=== PATIENT | male | born 1950 ===

== ENCOUNTER 2017-02-06 18:22 | Emergency (ER) | payer MEDICARE ==
[2017-02-06 18:48] VITALS: BP 130/95; PULSE 80; RESP 16; TEMP 98.2; O2SAT 99
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
[2017-02-06 20:42] LABS: PARTIAL THROMBOPLASTIN TIME 28.4 SECONDS (23.3-32.5)
[2017-02-06 21:21] LABS: BASO % 0.7 % (0.0-2.0); EOS # 0.1 K/uL (0.0-0.7); EOS % 1.9 % (0.0-4.0); HEMATOCRIT 34.2 % (35.0-51.0); LYMPH # 0.7 K/uL (1.0-4.3); MEAN CELL VOLUME 90.1 fl (80.0-94.0); MEAN CORPUSCULAR HEMOGLOBIN 28.9 pg (27.0-31.0); MEAN CORPUSCULAR HGB CONC 32.1 g/dL (33.0-37.0); MEAN PLATELET VOLUME 9.5 fl (7.2-11.7); MONO # 0.4 K/uL (0.0-0.8); MONO % 13.9 % (0.0-10.0); NEUT # 1.8 K/uL (1.8-7.0); NEUT % 58.5 % (50.0-75.0); NRBC % 0.2 % (0.0-0.0); RED CELL DISTRIBUTION WIDTH 14.3 % (11.5-14.5)
[2017-02-06 21:30] LABS: ALB/GLOB RATIO 0.9 (1.0-2.1); BILIRUBIN,TOTAL 0.4 mg/dl (0.2-1.3); CALCIUM 9.6 mg/dL (8.4-10.2); TOTAL PROTEIN 8.3 G/DL (6.3-8.2)
[2017-02-06 21:34] LABS: POTASSIUM 5.4 MMOL/L (3.6-5.0)
--- NOTE | 2017-02-06 22:03 | ED PDOC ---
Lower Extremity Pain/Injury Time Seen by Provider: 02/06/17 19:22 Chief Complaint (Nursing): Lower Extremity Problem/Injury Chief Complaint (Provider): right lower extremity problem History Per: Patient History/Exam Limitations: no limitations Onset/Duration Of Symptoms: Days (x 2 weeks ) Current Symptoms Are (Timing): Still Present Additional Complaint(s): Jesu Dodd is a 66 year old male, with a a previous medical history of diabetes, hypertension and CAD, who presents to the ED with complaints of an ulceration on the right lower extremity ongoing for 2 weeks. Pt reports weeping at the right lower tibial surface. Pt states to taking gabapentin medication. Pt denies any fever, chills, chest pain, cough, nausea, vomiting or diarrhea. Pt notes to changing dressing multiple times due to saturation from clear fluid discharge. 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 PMD: Peterson Smiley MD Podiatry: Parminder Willis DPM Past Medical History Reviewed: Historical Data, Nursing Documentation, Vital Signs Vital Signs: Last Vital Signs Temp 98.2 F 02/06/17 18:46 Pulse 80 02/06/17 18:46 Resp 16 02/06/17 18:46 BP 130/95 H 02/06/17 18:46 Pulse Ox 99 02/06/17 18:46 - Medical History PMH: CVA, Diabetes, HTN, Hypercholesterolemia Denies: Arthritis, CHF, Hypothyroidism, Rheumatoid Arthritis - Family History Family History: States: No Known Family Hx - Home Medications Home Medications: Ambulatory Orders Medication Instructions Recorded Metoprolol Tartrate [Lopressor] 25 mg PO DAILY 01/08/16 Aspirin/Dipyridamole [Aggrenox 1 ea PO BID #0 cap 01/10/16 25-200 mg] Atorvastatin [Lipitor] 20 mg PO DAILY #0 tab 01/10/16 Clopidogrel [Plavix] 75 mg PO DAILY #0 tab 01/10/16 Gabapentin [Neurontin] 600 mg PO TID #0 tab 01/10/16 SITagliptin [Januvia] 100 mg PO BID #0 tab 01/10/16 - Allergies Allergies/Adverse Reactions: Allergies Allergy/AdvReac Type Severity Reaction Status Date / Time No Known Allergies Allergy Verified 01/08/16 18:31 Review of Systems ROS Statement: Except As Marked, All Systems Reviewed And Found Negative Constitutional: Negative for: Fever, Chills Cardiovascular: Negative for: Chest Pain Respiratory: Negative for: Shortness of Breath Gastrointestinal: Negative for: Nausea, Vomiting, Abdominal Pain, Diarrhea Skin: Positive for: Other (ulcer in the right lower extremity ) Physical Exam - Reviewed Nursing Documentation Reviewed: Yes Vital Signs Reviewed: Yes - Physical Exam Appears: Positive for: Well, Non-toxic, No Acute Distress Head Exam: Positive for: ATRAUMATIC, NORMAL INSPECTION, NORMOCEPHALIC Skin: Positive for: Warm, Dry, Pallor Eye Exam: Positive for: EOMI, Normal appearance, PERRL ENT: Positive for: Normal ENT Inspection Neck: Positive for: Normal, Painless ROM Cardiovascular/Chest: Positive for: Regular Rate, Rhythm Respiratory: Positive for: CNT, Normal Breath Sounds Pulses-Dorsalis Pedis (R): 1+ Gastrointestinal/Abdominal: Positive for: Normal Exam, Bowel Sounds, Soft. Negative for: Tenderness Back: Positive for: Normal Inspection Extremity: Positive for: Normal ROM, Capillary Refill (< 2 seconds), Other (1 cm ulceration on right tibial surface of distal 3rd with clear serous fluids with no odor. non purulent. surrounding venostasis scaring/ 0.5 cm ulcer to th left tibial surface but not weeping. ). Negative for: Pedal Edema, Calf Tenderness Neurologic/Psych: Positive for: Alert, Oriented - Laboratory Results Result Diagrams: 02/06/17 20:10 02/06/17 20:10 - ECG O2 Sat by Pulse Oximetry: 99 (RA) Pulse Ox Interpretation: Normal Medical Decision Making Medical Decision Making: Initial Impression: 66 year old male with ulceration in setting of peripheral vascular disease Initial Plan: * B-type natriuretic peptide * labs * lactic acid * partial thromboplastin time * prothrombin time * x-ray foot * x-ray tibi fibula * blood culture * US duplex lower extremity * podiatry consult * reevaluation Dr. Johnson saw pt at bedside and cleared pt for discharge. 2218: US impression: No evidence of deep venous thrombosis in the visualized veins of the right lower extremity. 2300: Labs reviewed, show no clinically significant abnormalities. Podiatry evaluated patient and states patient is stable for outpatient f/u w/ Dr. Willis. Dx: venous stasis ulcer RLE stable Scribe Attestation: Documented by Seble Lozoya, acting as a scribe for Nnamdi Brown MD. Provider Scribe Attestation: All medical record entries made by the Scribe were at my direction and personally dictated by me. I have reviewed the chart and agree that the record accurately reflects my personal performance of the history, physical exam, medical decision making, and the department course for this patient. I have also personally directed, reviewed, and agree with the discharge instructions and disposition. Disposition - Clinical Impression Clinical Impression: Ulcer, venous stasis - Patient ED Disposition Is Patient to be Admitted: No Counseled Patient/Family Regarding: Studies Performed, Diagnosis, Need For Followup - Disposition Disposition: Routine/Home Disposition Time: 23:00 Condition: STABLE Instructions: Stasis Dermatitis (ED)
--- NOTE | 2017-02-06 22:18 | US ---
EXAM: US Duplex Right Lower Extremity Veins. CLINICAL HISTORY: 66 years old, male; Pain; Leg, lower; Right; Additional info: R/O dvt TECHNIQUE: Real-time ultrasound scan of the veins of the right lower extremity with color Doppler flow, spectral waveform analysis and compression. COMPARISON: No relevant prior studies available. FINDINGS: Deep veins: Unremarkable as visualized. No DVT in the common femoral, femoral or popliteal veins. Soft tissues: No acute findings. No popliteal cyst. IMPRESSION: No evidence of deep venous thrombosis in the visualized veins of the right lower extremity.
--- NOTE | 2017-02-06 22:23 | US ---
EXAM: US Duplex Right Lower Extremity Arteries. CLINICAL HISTORY: 66 years old, male; Pain; Leg, upper; Right; Additional info: Pvd TECHNIQUE: Real-time ultrasound scan of the arteries of the right lower extremity with 2-D vasquez scale, color Doppler flow and spectral waveform analysis. COMPARISON: No relevant prior studies available. FINDINGS: Right common femoral artery: Peak systolic velocity 56.5 cm/s Right superficial femoral artery: Peak systolic velocity Proximal 72.9 cm/s Mid 94.8 cm/s Distal 64.5 cm/s Right popliteal artery: Peak systolic velocity 65.9 cm/s Right calf/foot arteries: Anterior tibial artery 68.7 cm/s, monophasic Dorsalis pedis artery 48.0 cm/s, monophasic Posterior tibial artery not visualized due to bandage. IMPRESSION: Right lower extremity arterial flow as above.
--- NOTE | 2017-02-07 09:51 | RAD ---
PROCEDURE: Right tibia/ fibula dated HISTORY: ulcer COMPARISON: No prior study available for comparison however correlation made with radiographs of the right foot 08/26/2013. . TECHNIQUE: AP and lateral views of the right tibia and fibula performed. FINDINGS: The current study reveals no evidence of acute displaced fracture nor dislocation. The osseous structures appear intact. No definitive cortical destructive changes are identified. There appears to be mild infiltration changes of the subcutaneous tissues with extensive vascular calcifications. . Consider followup 3 phase bone scan and or MRI for further evaluation. IMPRESSION: No acute fractures. No definitive cortical destructive changes. Extensive vascular calcifications. Consider followup 3 phase bone scan and or MRI if early osteomyelitis suspected clinically which cannot be completely excluded
== END 2017-02-06 23:24 | disposition home or self-care (01) ==
LOC: H.ER 18:22
DX: I87.8 Other specified disorders of veins (principal); L97.919 Non-pressure chronic ulcer of unspecified part of right lower leg with unspecified severity; E11.9 Type 2 diabetes mellitus without complications; I10 Essential (primary) hypertension; I73.9 Peripheral vascular disease, unspecified

== ENCOUNTER 2018-10-19 07:05 | Day surgery (SDC) | payer MEDICARE ==
[2018-10-19 07:41] VITALS: BMI 31.6
[2018-10-19] MEDS ORDERED: Lactated Ringer's 500 ML IV ONE (07:43)
[2018-10-19] MEDS ORDERED: Etomidate 20 mg/10ml Inj IV ONE (08:05)
[2018-10-19] MEDS ORDERED: Propofol 10 mg/ml Inj (20 ML) ONE ×3 (08:06→08:56)
[2018-10-19] MEDS ORDERED: Midazolam 2 MG/2 ML VIAL ONE (08:07)
[2018-10-19] MEDS ORDERED: ePHEDrine 50 mg/ml Inj ONE (08:25)
[2018-10-19 09:06] VITALS: PULSE 80; TEMP 97
[2018-10-19 09:24] VITALS: BP 110/75; RESP 16; O2SAT 100
== END 2018-10-19 10:00 | disposition home or self-care (01) ==
LOC: H.ENDO 07:05
PROVIDERS: ATTEND Internal Medicine Gastroenterology
DX: Z12.11 Encounter for screening for malignant neoplasm of colon (principal); K64.8 Other hemorrhoids; I48.91 Unspecified atrial fibrillation; Z86.73 Personal history of transient ischemic attack (TIA), and cerebral infarction without residual deficits; E78.5 Hyperlipidemia, unspecified; I10 Essential (primary) hypertension; E66.9 Obesity, unspecified; E11.51 Type 2 diabetes mellitus with diabetic peripheral angiopathy without gangrene; I85.00 Esophageal varices without bleeding; K29.50 Unspecified chronic gastritis without bleeding
CPT/HCPCS: 43239; 45378; 88305; J2001; J2250; J2704; J7120